=== PATIENT | female | born 2000 | race Caucasian/White ===

== ENCOUNTER 2018-04-09 16:00 | Observation (INO) | payer MEDICAID, OTHER | END 2018-04-09 17:30 | disposition home or self-care (01) | DRG 566 | LOC: LDRP 16:00 | PROVIDERS: ADMIT Obstetrics & Gynecology; ATTEND Obstetrics & Gynecology | DX: O40.3XX0 Polyhydramnios, third trimester, not applicable or unspecified (principal); O26.893 Other specified pregnancy related conditions, third trimester; N89.8 Other specified noninflammatory disorders of vagina; Z3A.30 30 weeks gestation of pregnancy | CPT/HCPCS: 59025; 76818; 81002; G0378 ==

== ENCOUNTER 2018-04-15 13:25 | Observation (INO) | payer MEDICAID ==
[~2018-04-15] VITALS: Ht 165.1 cm; Wt 61.2 kg
[2018-04-15] MEDS ORDERED: PREN-96 PO (14:59)
== END 2018-04-15 14:45 | disposition home or self-care (01) | DRG 566 ==
LOC: LDRP 13:25
PROVIDERS: ADMIT Obstetrics & Gynecology; ATTEND Obstetrics & Gynecology
DX: O40.3XX0 Polyhydramnios, third trimester, not applicable or unspecified (principal); Z3A.31 31 weeks gestation of pregnancy
CPT/HCPCS: 59025; 76815; 81002; G0378

== ENCOUNTER 2018-04-22 13:00 | Observation (INO) | payer MEDICAID ==
[~2018-04-22 13:00] MED LIST: PREN-96 PO
== END 2018-04-22 14:25 | disposition home or self-care (01) | DRG 566 ==
LOC: LDRP 13:00
PROVIDERS: ADMIT Obstetrics & Gynecology; ATTEND Obstetrics & Gynecology
DX: O40.3XX0 Polyhydramnios, third trimester, not applicable or unspecified (principal); Z3A.32 32 weeks gestation of pregnancy
CPT/HCPCS: G0378

== ENCOUNTER 2018-04-29 13:10 | Observation (INO) | payer MEDICAID | END 2018-04-29 14:15 | disposition home or self-care (01) | DRG 566 | LOC: LDRP 13:10 | PROVIDERS: ADMIT Obstetrics & Gynecology; ATTEND Obstetrics & Gynecology | DX: O40.3XX0 Polyhydramnios, third trimester, not applicable or unspecified (principal); Z3A.33 33 weeks gestation of pregnancy | CPT/HCPCS: 59025; 76818; 81002; G0378 ==

== ENCOUNTER 2018-05-06 13:05 | Observation (INO) | payer MEDICAID ==
[~2018-05-06] VITALS: Ht 165.1 cm; Wt 54.4 kg
[2018-05-06] MEDS ORDERED: BETAMETHASONE ACET (6MG/ML) 5ML VIAL IM ONE (15:00)
[2018-05-06] MEDS ORDERED: TERBUTALINE SULFATE 1 MG/ML 1ML VIAL SC SCH (15:00)
== END 2018-05-06 16:25 | disposition home or self-care (01) | DRG 566 ==
LOC: LDRP 13:05
PROVIDERS: ADMIT Obstetrics & Gynecology; ATTEND Obstetrics & Gynecology
DX: O40.3XX0 Polyhydramnios, third trimester, not applicable or unspecified (principal); O60.03 Preterm labor without delivery, third trimester; Z3A.34 34 weeks gestation of pregnancy
CPT/HCPCS: 59025; 76818; 81002; 96372; G0378; J0702; J3105

== ENCOUNTER 2018-05-07 15:05 | Observation (INO) | payer MEDICAID ==
[2018-05-07] MEDS ORDERED: BETAMETHASONE ACET (6MG/ML) 5ML VIAL IM ONE (15:45)
== END 2018-05-07 16:00 | disposition home or self-care (01) | DRG 566 ==
LOC: LDRP 15:05
PROVIDERS: ADMIT Obstetrics & Gynecology; ATTEND Obstetrics & Gynecology
DX: O40.3XX0 Polyhydramnios, third trimester, not applicable or unspecified (principal); O60.03 Preterm labor without delivery, third trimester; Z3A.34 34 weeks gestation of pregnancy
CPT/HCPCS: 59025; 81002; 96372; G0378; J0702

== ENCOUNTER 2018-05-15 13:20 | Observation (INO) | payer MEDICAID | END 2018-05-15 13:50 | disposition home or self-care (01) | DRG 563 | LOC: LDRP 13:20 | PROVIDERS: ADMIT Obstetrics & Gynecology; ATTEND Obstetrics & Gynecology | DX: O60.03 Preterm labor without delivery, third trimester (principal); O26.893 Other specified pregnancy related conditions, third trimester; R51 Headache; Z3A.36 36 weeks gestation of pregnancy | CPT/HCPCS: 59025; 81002; G0378 ==

== ENCOUNTER 2018-05-21 14:00 | Observation (INO) | payer MEDICAID ==
[2018-05-21 15:16] LABS: Basophils # (auto) 0 uL; Basophils % (auto) 0.4 % (0.0-2.0); Eosinophils # (auto) 0 uL; Eosinophils % (auto) 0.2 % (0.0-7.0); Hematocrit 36.5 % (36.0-46.0); Hemoglobin 12.1 g/dL (12.2-16.2); Lymphocytes # (auto) 1.4 uL; Lymphocytes % (auto) 16.1 % (10.0-50.0); Mean Corpuscular Hemoglobin 28.5 pg (28.0-32.0); Mean Corpuscular Hgb Conc. 33.1 g/dL (32.0-36.0); Mean Corpuscular Volume 86.2 fL (80.0-100.0); Monocytes # (auto) 0.7 uL; Monocytes % (auto) 7.8 % (0.0-12.0); Neutrophils # (auto) 6.5 uL; Neutrophils % (auto) 75.5 % (37.0-80.0); Platelet Count (auto) 284 10^3/uL (140-450); Red Blood Cells 4.23 10^6/uL (4.0-5.20); Red Cell Distribution Width 13.3 % (11.8-14.3); White Blood Cell 8.6 10^3/uL (4.4-10.8)
[2018-05-21 15:29] LABS: Albumin 2.5 g/dL (3.4-5.0); Calcium 8.6 mg/dL (8.5-10.1); Potassium 3.9 mmol/L (3.5-5.1)
[2018-05-21 15:33] LABS: BUN/Creatinine Ratio 15.9; Bilirubin, Total 0.3 mg/dL (0.2-1.0); Total Protein 7.4 g/dL (6.4-8.2); Uric Acid 4.8 mg/dL (2.6-6.0)
[2018-05-23 06:06] LABS: RPR Non Reactive (Non Reactive)
== END 2018-05-21 16:10 | disposition home or self-care (01) | DRG 566 ==
LOC: LDRP 14:00
PROVIDERS: ADMIT Obstetrics & Gynecology; ATTEND Obstetrics & Gynecology
DX: O40.3XX0 Polyhydramnios, third trimester, not applicable or unspecified (principal); O26.893 Other specified pregnancy related conditions, third trimester; L29.9 Pruritus, unspecified; R21 Rash and other nonspecific skin eruption; Z3A.36 36 weeks gestation of pregnancy
CPT/HCPCS: 36415; 59025; 76818; 80053; 81002; 84550; 85025; 86592; G0378

== ENCOUNTER 2018-05-24 12:05 | Observation (INO) | payer MEDICAID ==
[2018-05-24] MEDS ORDERED: URSO300C4 PO (12:50)
== END 2018-05-24 14:05 | disposition home or self-care (01) | DRG 566 ==
LOC: LDRP 12:05
PROVIDERS: ADMIT Obstetrics & Gynecology; ATTEND Obstetrics & Gynecology
DX: O40.3XX0 Polyhydramnios, third trimester, not applicable or unspecified (principal); Z3A.37 37 weeks gestation of pregnancy
CPT/HCPCS: 76818; G0378

== ENCOUNTER 2018-05-26 14:59 | Observation (INO) | payer MEDICAID ==
[~2018-05-26 14:59] MED LIST changes: +URSO300C4 PO
== END 2018-05-26 17:15 | disposition home or self-care (01) | DRG 566 ==
LOC: LDRP 14:59
PROVIDERS: ADMIT Obstetrics & Gynecology; ATTEND Obstetrics & Gynecology
DX: O26.613 Liver and biliary tract disorders in pregnancy, third trimester (principal); K83.1 Obstruction of bile duct; Z3A.37 37 weeks gestation of pregnancy
CPT/HCPCS: 59025; 76818; 81002; G0378

== ENCOUNTER 2018-05-28 14:45 | Observation (INO) | payer MEDICAID ==
[2018-05-28 16:38] LABS: Albumin 2.4 g/dL (3.4-5.0); Calcium 8.8 mg/dL (8.5-10.1); Potassium 3.8 mmol/L (3.5-5.1)
[2018-05-28 16:45] LABS: BUN/Creatinine Ratio 12.1; Bilirubin, Total 0.2 mg/dL (0.2-1.0); Total Protein 6.9 g/dL (6.4-8.2)
[2018-05-28 16:49] LABS: Basophils # (auto) 0 uL; Basophils % (auto) 0.4 % (0.0-2.0); Eosinophils # (auto) 0.1 uL; Hematocrit 36.6 % (36.0-46.0); Hemoglobin 12.1 g/dL (12.2-16.2); Lymphocytes # (auto) 1.8 uL; Lymphocytes % (auto) 23.4 % (10.0-50.0); Mean Corpuscular Hemoglobin 29.1 pg (28.0-32.0); Mean Corpuscular Hgb Conc. 33.2 g/dL (32.0-36.0); Mean Corpuscular Volume 87.6 fL (80.0-100.0); Monocytes # (auto) 0.6 uL; Monocytes % (auto) 7.8 % (0.0-12.0); Neutrophils # (auto) 5.3 uL; Neutrophils % (auto) 67.4 % (37.0-80.0); Nucleated Red Blood Cells % 0.1 %; Platelet Count (auto) 259 10^3/uL (140-450); Red Blood Cells 4.18 10^6/uL (4.0-5.20); Red Cell Distribution Width 13.1 % (11.8-14.3); White Blood Cell 7.8 10^3/uL (4.4-10.8)
[2018-05-28 16:58] LABS: INR 0.85 (0.9-1.15); Partial Thromboplastin Time 26.2 sec (23.78-33.04); Prothrombin Time 9.2 sec (9.27-12.13)
[2018-05-28 17:04] LABS: Urine WBC None Seen /hpf (0 - 5)
[2018-05-28 17:25] LABS: Urine Bacteria FEW /hpf (None Seen); Urine Blood Negative /uL (Negative); Urine Specific Gravity 1.005 (1.001-1.035)
== END 2018-05-28 16:56 | disposition home or self-care (01) | DRG 566 ==
LOC: LDRP 14:45
PROVIDERS: ADMIT Obstetrics & Gynecology; ATTEND Obstetrics & Gynecology
DX: O26.613 Liver and biliary tract disorders in pregnancy, third trimester (principal); K83.1 Obstruction of bile duct; Z3A.37 37 weeks gestation of pregnancy
CPT/HCPCS: 36415; 59025; 76805; 76818; 80053; 81001; 81002; 84550; 85025; 85610; 85730; G0378

== ENCOUNTER 2018-05-29 19:36 | Observation (INO) | payer MEDICAID ==
[~2018-05-29] VITALS: Ht 165.1 cm; Wt 50.3 kg
== END 2018-05-29 21:50 | disposition home or self-care (01) | DRG 566 ==
LOC: LDRP 19:36
PROVIDERS: ADMIT Specialist; ATTEND Specialist
DX: O23.43 Unspecified infection of urinary tract in pregnancy, third trimester (principal); N13.30 Unspecified hydronephrosis; Z3A.38 38 weeks gestation of pregnancy
CPT/HCPCS: 59025; 76818; 81002; G0378

== ENCOUNTER 2018-05-31 07:35 | Inpatient (IN) | payer MEDICAID ==
[~2018-05-31] VITALS: Ht 160 cm; Wt 67.6 kg
[2018-05-31] MEDS ORDERED: LACT. RINGERS/OXYTOCIN 20UNITS 1,000 ML IV SCH ×2 (08:08→23:37)
[2018-05-31] MEDS ORDERED: METHYLERGONOVINE MALEATE 0.2 MG/ML AMP IM PRN (08:15)
[2018-05-31] MEDS ORDERED: CARBOPROST TROMETHAMINE 250 MCG/1ML VIAL IM PRN (08:15)
[2018-05-31] MEDS ORDERED: PHISODERM TOP SOLN 240ML BTL TOP PRN (08:15)
[2018-05-31] MEDS ORDERED: DERMOPLAST 60ML BOTTLE TOP PRN (08:15)
[2018-05-31] MEDS ORDERED: LIDOCAINE 2%HCL (LOCAL ANESTH.) INJ 20ML MDV ID ONE (08:15)
[2018-05-31] MEDS ORDERED: WITCH HAZEL-GLYCERIN PAD TOP PRN (08:15)
[2018-05-31 08:47] LABS: Basophils # (auto) 0 uL; Basophils % (auto) 0.3 % (0.0-2.0); Eosinophils # (auto) 0.1 uL; Eosinophils % (auto) 1.3 % (0.0-7.0); Hematocrit 35.4 % (36.0-46.0); Hemoglobin 11.8 g/dL (12.2-16.2); Lymphocytes # (auto) 2.2 uL; Lymphocytes % (auto) 28.8 % (10.0-50.0); Mean Corpuscular Hemoglobin 28.9 pg (28.0-32.0); Mean Corpuscular Hgb Conc. 33.2 g/dL (32.0-36.0); Monocytes # (auto) 0.6 uL; Monocytes % (auto) 7.9 % (0.0-12.0); Neutrophils # (auto) 4.8 uL; Neutrophils % (auto) 61.7 % (37.0-80.0); Nucleated Red Blood Cells % 0.1 %; Platelet Count (auto) 246 10^3/uL (140-450); Red Blood Cells 4.07 10^6/uL (4.0-5.20); Red Cell Distribution Width 13.3 % (11.8-14.3); White Blood Cell 7.7 10^3/uL (4.4-10.8)
[2018-05-31 08:59] LABS: Albumin 2.2 g/dL (3.4-5.0); BUN/Creatinine Ratio 9.8; Calcium 8.2 mg/dL (8.5-10.1)
[2018-05-31 09:00] LABS: Alcohol, Urine < 3.0 mg/dL (0-5); Amphetamine Screen, Urine NEGATIVE (NEGATIVE); Barbiturate Scree,Urine NEGATIVE (NEGATIVE); Benzodiazephine Screen, Urine NEGATIVE (NEGATIVE); Cannabinoid Screen, Urine NEGATIVE (NEGATIVE); Cocaine Screen, Urine NEGATIVE (NEGATIVE); Opiate Scree,Urine NEGATIVE (NEGATIVE); Phencyclidine Screen, Urine NEGATIVE (NEGATIVE)
[2018-05-31 09:03] LABS: INR 0.85 (0.9-1.15); Partial Thromboplastin Time 26.3 sec (23.78-33.04); Prothrombin Time 9.2 sec (9.27-12.13)
[2018-05-31 09:08] LABS: Bilirubin, Total 0.2 mg/dL (0.2-1.0); Total Protein 6.7 g/dL (6.4-8.2)
[2018-05-31 09:09] LABS: Urine Bacteria FEW /hpf (None Seen); Urine Blood Negative /uL (Negative); Urine Specific Gravity 1.004 (1.001-1.035); Urine WBC 1 /hpf (0 - 5)
[2018-05-31] MEDS: NALBUPHINE HCL 10 MG/1ml INJECTION IV PRN (17:44)
[2018-05-31] MEDS ORDERED: PROMETHAZINE HCL 25 MG/ML 1ML IV ONE (17:45)
[2018-05-31] MEDS ORDERED: TERBUTALINE SULFATE 1 MG/ML 1ML VIAL SC ONE (23:45)
[2018-06-01] MEDS ORDERED: BUTORPHANOL TARTRATE 2 MG/1 ML VIAL IV PRN (03:15)
[2018-06-01] MEDS: LACTATED RINGER'S 1,000 ML IV SCH ×2 (08:09→16:15)
[2018-06-01] MEDS ORDERED: ePHEDrine SULFATE 50 MG/ML AMP IV ONE (08:45)
[2018-06-01] MEDS ORDERED: fentaNYL W ROPIVACAINE 150 ML EPI SCH (08:45)
[2018-06-01] MEDS: NALBUPHINE HCL 10 MG/1ml INJECTION IV PRN ×2 (09:14→12:16)
[2018-06-01] MEDS ORDERED: PROMETHAZINE HCL 25 MG/ML 1ML IV PRN (10:15)
[2018-06-01] MEDS ORDERED: LIDOCAINE 2%HCL (LOCAL ANESTH.) INJ 20ML MDV ONE (14:04)
--- NOTE | 2018-06-01 16:30 | NUR ---
Teaching: Reviewed information in [employer] booklet with patient. Discussed benefits of and risks associated with not . Discussed different positions, proper latch, feeding cues, and baby-led . Provided information of medication side effects related to . All questions and concerns addressed at this time. Patient verbalized understanding of information.
--- NOTE | 2018-06-01 17:40 | NUR ---
Ambulation: Patient OOB with standby assistance by RN. Patient ambulated to bathroom with steady gait. Patient unable to void at this time. [facility] teaching provided with returned demonstration by patient. Clean gown provided and bed linen changed. Patient ambulated back to bed with steady gait and no distress noted.
[2018-06-01 19:00] VITALS: BP 131/76
[2018-06-01] MEDS: IBUPROFEN 600 MG TAB PO PRN ×2 (19:27→23:21)
--- NOTE | 2018-06-01 20:00 | NUR ---
pt ambulates with left leg limp. father of baby states this started post Celestone injection back in April.
[2018-06-01 23:15] VITALS: BP 102/58
[2018-06-02] MEDS ORDERED: TETANUS-DIPTH-ACEL PERTUSSIS 0.5ML SYRG IM ONE
[2018-06-02] MEDS ORDERED: INFLUENZA QUAD 2018-2019 0.5 ML SYRG IM ONE
[2018-06-02] MEDS: ACETAMINOPHEN 325 MG TAB PO PRN ×2 (03:19→10:53)
[2018-06-02 03:20] VITALS: BP 96/51
[2018-06-02] MEDS: IBUPROFEN 600 MG TAB PO PRN (05:28)
[2018-06-02] MEDS ORDERED: TUBERCULIN PPD 5 UNIT/0.1 ML ID ONE (07:00)
--- NOTE | 2018-06-02 07:03 | NUR ---
Milo WILKERSONM NOTIFIED OF PTS COMPLAINT OF LEFT LEG PAIN WHEN AMBULATING PER PT "THAT STARTED A WEEK AND A HALF AGO." PT APPEARS TO BE AMBULATING WITHOUT DIFFICULTY, NO S/S OF DISTRESS OR SOB NOTED. PER Milo ALVAREZ CNM CONTINUE WITH CURRENT PLAN OF CARE. WILL CONTINUE WITH CURRENT PLAN OF CARE.
[2018-06-02 07:05] VITALS: BP 107/60
[2018-06-02] MEDS ORDERED: LACT. RINGERS/OXYTOCIN 20UNITS 0 ML IV ONE (09:01)
[2018-06-02] MEDS ORDERED: DOCUSATE CALCIUM 240 MG CAP PO SCH (10:00)
[2018-06-02 10:56] VITALS: BP 109/67
--- NOTE | 2018-06-02 11:16 | NUR ---
IV removal IV DC'd with sterile technique, catheter fully intact. Pressure dressing applied to site. Patient tolerated procedure well. Discharged with aftercare instructions per MD.
[2018-06-02 15:28] VITALS: BP 106/72
[2018-06-02 15:58] LABS: RPR Non Reactive (Non Reactive)
--- NOTE | 2018-06-02 16:06 | NUR ---
Discharge: Discharge instructions given as ordered. Pt encouraged to follow up with [facility] as instructed. All questions and concerns addressed. Patient verbalized understanding. Medication reconciliation completed and copy given to patient. All required/requested vaccines given and copies of vaccinations given to patient. Patient encouraged to prepare to depart unit.
--- NOTE | 2018-06-02 18:00 | NUR ---
Discharge: Patient taken to vehicle via wheelchair with all personal belongings, accompanied by staff and family member. No distress noted at time of departure, no adverse changes in status since initial assessment.
== END 2018-06-02 18:00 | disposition home or self-care (01) | DRG 861 ==
LOC: LDRP 07:35 → OBSVTOIN 08:08
PROVIDERS: ADMIT Obstetrics & Gynecology; ATTEND Obstetrics & Gynecology
PROC: 10D07Z6 Extraction of Products of Conception, Vacuum, Via Natural or Artificial Opening (ICD-10-PCS; principal; 2018-06-01)
PROC: 0W8NXZZ Division of Female Perineum, External Approach (ICD-10-PCS; 2018-06-01)
DX: Z3A.38 38 weeks gestation of pregnancy (principal); K83.1 Obstruction of bile duct; Z37.0 Single live birth
CPT/HCPCS: 36415; 59025; 59409; 80053; 80307; 81001; 81002; 85025; 85610; 85730; 86592; 86850; 86900; 86901; 90472; 90674; 90686; 90715; 96361; 96365; 96366; 96372; 96375; G0378; J2590; J3010